=== PATIENT | female | born 2000 | race Caucasian/White ===

== ENCOUNTER 2024-07-15 07:44 | Inpatient (IN) ==
[2024-07-15] MEDS ORDERED: LIDOCAINE 1% LOCAL 20 ML VIAL INFIL PRN (07:53)
[2024-07-15] MEDS ORDERED: OXYTOCIN 30 UNITS/NSS 30 UNITS/500 ML BAG IV PRN ×2 (07:53→17:12)
--- NOTE | 2024-07-15 08:12 | History & Physical Report ---
Date of Service July 15, 2024 Assessment & Plan (1) Encounter for induction of labor: (2) 40 weeks gestation of : Plan admit for iol. pitocin and arom as indicated . epidural on demand. fetus category one. anticipate . Admission and Anticipated Discharge Date Admission Date: July 15, 2024 History of Present Illness Chief Complaint: iol, postdates Primary Care Provider: NO PCP patient is a 23yowf with iup at 40 4/7 who presents for iol for postdates. Notes no contractions. no lof/vb. Good fm. Patient smokes MJ daily for treatment of anxiety and depression, has a card. and Delivery Plans Hx Pre-eclampsia baseline labs and 24 hour urine. baby asa Medical Marijuana Card--anxiety New FOB IOL post-dates 07/15 OB Labs: Blood Type A Positive 01/12/24 Antibody Screen NEGATIVE 01/12/24 Hgb 12.1 g/dl (12.0-16.0) 06/14/24 Hct 35.3 % (37.0-47.0) L 06/14/24 MCV 85.5 fL (80.0-100.0) 06/14/24 Plt Count 204 K/uL (130-400) 06/14/24 Rubella IgG Antibody Immune (Immune) 01/12/24 Treponema pallidum Ab Negative (Negative) 01/12/24 Hep Bs Antigen Negative (Negative) 01/12/24 Hepatitis C Antibody Negative (Negative) 01/12/24 HIV 1&2 Ab/P24 Ag 4thGn Negative (Negative) 01/12/24 Glucose 1 Hr 50 gm 149 mg/dl (70-130) H 02/02/24 OB Optional Labs: Chlamydia trachomatis RNA Not Detected (NotDetected) 06/14/24 Neisseria gonorrhoeae RNA Not Detected (NotDetected) 06/14/24 gbs neg--akh Allergies Allergy/AdvReac Type Severity Reaction Status Date / Time amoxicillin Allergy Severe Anaphylaxis Verified 07/12/24 09:47 Penicillins Allergy Severe Anaphylaxis Verified 07/12/24 09:47 Home Medications Medication Instructions Recorded Confirmed Type prenat.vits,oscar,sdk-nsqi-blbca tab PO 01/05/24 07/12/24 History Patient History Medical History (Updated 07/15/24 @ 08:24 by Glendy Hunt MD, FACOG) Anxiety and depression Fibromyalgia Surgical History (Updated 07/15/24 @ 08:17 by Glendy Hunt MD, FACOG) No pertinent past surgical history Social History Smoking Status: Never smoker Do You Dip or Chew Tobacco: No; Hx Alcohol Use: No Hx Substance Use: Yes Substance Use Type Other:: medical marijuana card; last used @ 0300 06/14 Preferred Language: Luxembourgish marital status: Single marital status details: Ken (23) [phone] Current Living Situation Comment: lives with FOB, and daughter, 1dog, 2 cats, FOB to change litter current occupational status: unemployed Feels Safe at Home: Yes OB History Past Pregnancies Del. Date GA wks Lbr Lgth wt Sex Type del Anes Place Del Prov ? Comment Unknown 11 Aborted-Elective 201711/21/21 37 4lb 12oz F Epid ural Other [place], [facility] Pre-eclampsia [employer]PER[employer]/PAVER History noncontributory Physical Exam Constitutional: WD/WN, vitals as above Gastrointestinal (Abdomen): soft, gravid, nt Psychiatric: A+Ox3, euthymic affect Genitourinary: cx--3/75/-2/mid/soft toco--,oc efm--130s with mod varaibiltiy, accels present, no decels Results & Data Vital Signs (Past 12 Hours) Vital Signs Pulse BP 07/15/24 07:59 83 135/71 Coding Level of Care Code None Diagnoses Encounter for induction of labor Z34.90 40 weeks gestation of Z3A.40
[2024-07-15] MEDS: LACTATED RINGER'S 1,000 ML IV PRN (08:22)
[2024-07-15] MEDS: OXYTOCIN 30 UNITS/NSS 30 UNITS/500 ML BAG IV PRN (08:43)
[2024-07-15 08:46] LABS: Hematocrit (blood only) 36.7 % (37.0-47.0); Hemoglobin 12.2 g/dl (12.0-16.0); Mean Corpuscular Hemoglobin 28.4 pg (25.0-34.0); Mean Corpuscular Hgb Conc 33.2 g/dL (32.0-36.0); Mean Corpuscular Volume 85.3 fL (80.0-100.0); Mean Platelet Volume 12.5 fL (9.4-12.4); Platelet Count 192 K/uL (130-400); RDW Standard Deviation 46.5 fL (36.4-46.3)
[2024-07-15 09:26] LABS: Amphetamines+Metham, Urine Neg (Neg); Barbiturates, Urine Neg (Neg); Benzodiazepine, Urine Neg (Neg); Cocaine, Urine Neg (Neg); Fentanyl, Urine Neg (Neg); MDMA (Ecstacy), Urine Neg (Neg); Marijuana, Urine Pos (Neg); Methadone, Urine Neg (Neg); Opiate, Urine Neg (Neg); Phencyclidine, Urine Neg (Neg)
[2024-07-15 12:00] LABS: Albumin Globulin Ratio 1.3 (0.9-2); Bilirubin,Total 0.4 mg/dl (0.2-1.0); Calcium 8.9 mg/dl (8.6-10.3); Creatinine Clr Calc Pharmacy 144.5 ml/min; Globulin 3.2 gm/dl (2.5-4.0); Total Protein 7.2 gm/dl (6.0-8.3)
[2024-07-15] MEDS ORDERED: diphenhydrAMINE 50 MG/ML VIAL IV PRN (12:20)
[2024-07-15] MEDS ORDERED: fentANYL 2 MCG/ML BUPIVacaine 0.125%-NSS 100ML BAG EPI PRN (12:20)
[2024-07-15] MEDS ORDERED: ROPIVACAINE 0.5% PF 5 MG/ML 20 ML VIAL EPI PRN (12:20)
[2024-07-15] MEDS ORDERED: LIDOCAINE 2% MPF LOCAL 5 ML VIAL EPI PRN (12:20)
[2024-07-15] MEDS ORDERED: fentaNYL citrate PF 100 MCG/2 ML VIAL EPI PRN (12:20)
[2024-07-15] MEDS ORDERED: NALOXONE HCL 0.4 MG/1 ML VIAL/CARP IV PRN (12:20)
[2024-07-15] MEDS ORDERED: SODIUM CHLORIDE 0.9% PF INJ 10 ML VIAL EPI PRN (12:20)
[2024-07-15] MEDS ORDERED: ePHEDrine sulfate 50 MG/ML AMP IV PRN (12:20)
[2024-07-15] MEDS ORDERED: NALOXONE HCL 1 MG in SODIUM CHLORIDE 0.9% 1,000 ML IV PRN (12:20)
[2024-07-15] MEDS ORDERED: BUPIVACAINE 0.25% PF 30 ML VIAL EPI PRN (12:20)
[2024-07-15] MEDS ORDERED: NALBUPHINE HCL INJ 10 MG/ML AMP IV PRN (12:20)
--- NOTE | 2024-07-15 12:20 | Anesthesiology Consultation ---
Date of Service July 15, 2024 Assessment & Plan Chart Review Chart Review: Acceptable Risk for Labor Epidural History Height/Weight Height: 5 ft 1 in Weight: 83.915 kg Allergies Allergy/AdvReac Type Severity Reaction Status Date / Time amoxicillin Allergy Severe Anaphylaxis Verified 07/12/24 09:47 Penicillins Allergy Severe Anaphylaxis Verified 07/12/24 09:47 Medications Home Medications Medication Instructions Recorded Confirmed Last Taken prenat.vits,oscar,wud-tdve-qiacb 1 tab PO 1XD 01/05/24 07/15/24 Unknown Active Medications Generic Name Dose Route Start Last Admin Trade Name Freq PRN Reason Stop Dose Admin Lactated Ringer's 1,000 mls @ 125 mls/hr 07/15/24 07:53 07/15/24 12:15 Lr IV 07/16/24 07:52 999 mls/hr .Q8H PRN Infusion L&D Protocol Protocol Oxytocin 30 units in 500 mls @ 11 mls/hr 07/15/24 07:53 07/15/24 11:25 Pitocin 30 Units/Nss IV 07/17/24 07:52 0.66 units/hr .Q24H PRN 11 mls/hr Labor Induction/Augmentation Titration Protocol 0.66 UNITS/HR Past Medical History Medical History Anxiety and depression Fibromyalgia Past Surgical History Surgical History No pertinent past surgical history Social History Smoking Status: Former smoker Do You Dip or Chew Tobacco: No Hx Alcohol Use: No Hx Substance Use: Yes substance use type: marijuana and prescription drug Substance Use Type Other:: medical marijuana card; last used @ 0300 06/14 Last Used Substance: Hours (ago) Last Used Substance Other:: medical marijuana card in chart Physical Exam Vital Signs Last Vital Signs Temp 36.9 C 07/15/24 11:00 Pulse 101 H 07/15/24 11:52 Resp 18 07/15/24 11:30 BP 151/84 H 07/15/24 11:52 O2 Del Method Room Air 07/15/24 08:02 Testing Laboratory Results 07/15/24 08:13 07/15/24 11:23
[2024-07-15] MEDS: fentANYL 2 MCG/ML BUPIVacaine 0.125%-NSS 100ML BAG ONE (12:56)
[2024-07-15] MEDS: LIDOCAINE 2%/EPINEPHRINE 1:200,000 20 ML PF ONE (12:57)
[2024-07-15] MEDS: fentaNYL citrate PF 100 MCG/2 ML VIAL ONE (12:57)
[2024-07-15] MEDS: BUPIVACAINE 0.25% PF 30 ML VIAL ONE (12:57)
[2024-07-15] MEDS: BUPIVACAINE 0.25% PF 30 ML VIAL EPI STA (12:57)
[2024-07-15] MEDS: fentaNYL citrate PF 100 MCG/2 ML VIAL EPI STA (12:58)
[2024-07-15] MEDS: LIDOCAINE 2%/EPINEPHRINE 1:200,000 20 ML PF EPI STA (12:58)
[2024-07-15] MEDS: SODIUM CHLORIDE 0.9% PF INJ 10 ML VIAL EPI STA (12:58)
--- NOTE | 2024-07-15 13:40 | Labor Progress Brief Note ---
Date of Service July 15, 2024 Subjective Comfortable with epidural, FHT Cat 1 Ajo Q 2 SVE 5/90/-1 AROM clear fluid. Continue labor. Assessment & Plan Admission and Anticipated Discharge Date Admission Date: July 15, 2024 Results & Data Vital Signs (Past 12 Hours) Vital Signs Temp Pulse Resp BP Pulse Ox O2 Del Method 07/15/24 13:38 91 H 130/70 07/15/24 13:37 100 07/15/24 13:37 93 H 07/15/24 13:37 89 139/112 H 07/15/24 13:32 82 99 07/15/24 13:27 90 99 07/15/24 13:22 73 99 07/15/24 13:18 82 135/77 07/15/24 13:17 78 99 07/15/24 13:14 75 137/73 07/15/24 13:12 79 98 07/15/24 13:07 98 07/15/24 13:07 79 07/15/24 13:07 86 143/78 H 07/15/24 13:04 87 134/67 07/15/24 13:02 80 135/65 98 07/15/24 13:01 78 141/67 H 07/15/24 13:00 18 07/15/24 13:00 18 07/15/24 12:58 72 129/62 07/15/24 12:57 95 H 98 07/15/24 12:56 76 133/70 07/15/24 12:54 93 H 135/79 07/15/24 12:52 84 130/70 99 07/15/24 12:49 80 131/66 07/15/24 12:47 88 99 07/15/24 12:46 92 H 131/75 07/15/24 12:44 93 H 128/69 07/15/24 12:42 75 135/78 98 07/15/24 12:40 98 H 140/79 07/15/24 12:38 84 150/80 H 07/15/24 12:37 82 100 07/15/24 12:36 92 H 154/93 H 07/15/24 12:32 89 98 07/15/24 12:30 18 07/15/24 12:30 18 07/15/24 12:27 74 98 07/15/24 12:22 80 99 07/15/24 11:52 101 H 151/84 H 07/15/24 11:30 18 07/15/24 11:30 18 07/15/24 11:00 20 07/15/24 11:00 36.9 C 20 07/15/24 10:50 97 H 147/90 H 07/15/24 10:48 84 153/94 H 07/15/24 10:47 64 146/88 H 07/15/24 10:30 18 07/15/24 10:30 18 07/15/24 10:00 16 07/15/24 10:00 16 07/15/24 09:48 85 128/61 07/15/24 09:30 18 07/15/24 09:30 18 07/15/24 08:47 92 H 133/86 07/15/24 08:02 36.7 C 83 18 135/71 Room Air 07/15/24 07:59 83 135/71 Coding Level of Care Code None
[2024-07-15] MEDS ORDERED: bisacodyL 10 MG SUPP PR PRN (17:12)
[2024-07-15] MEDS ORDERED: HYDROCORTISONE ACETATE 25 MG SUPP PR PRN (17:12)
--- NOTE | 2024-07-15 17:23 | Delivery Summary ---
Vaginal Delivery Summary Date of Service July 15, 2024 Vaginal Delivery Summary and 1st Degree LAC Vaginal Delivery Summary: Pre-delivery diagnoses: 23yo @ 40 /, IOL, h/o preeclampsia, marijuana user Post-delivery diagnoses: same Procedure: spontaneous vaginal delivery, mild shoulder dystocia Surgeon: Eloise Wise DO Complications: none Findings: Viable male . Apgars: 8/10 . Weight pending, please see nursery records Estimated QBL: 10cc Description of delivery: The patient progressed to complete with epidural anesthesia. She then began to push. She spontaneously vaginally delivered a viable from the cephalic presentation. The head delivered in NERI position. The anterior shoulder did not immediately deliver, therefore patient was repositioned using McRobert's maneuver, and attempted again - not successful. Posterior shoulder attempted, then shoulders rotated for delivery of posterior shoulder, followed by anterior shoulder. 1 min 30 seconds between head and body delivery. The baby was placed on mother's abdomen, baby was vigorous and a spontaneous cry was heard. The cord was doubly clamped and cut. A segment was retained for cord gases. Cord blood was obtained. The placenta was delivered spontaneously intact with a 3-vessel cord. The uterus and vagina were swept of clots and debris. IV pitocin was given. The uterus became firm. The cervix, vagina, and perineum were inspected and a small 1st degree perineal laceration was noted, hemostatic, patient did not desire repair. Excellent hemostasis was observed. After delivery, I debriefed pt and FOB about the mild shoulder dystocia, baby vigorous in the room, moving all extremities well. The mother and baby are recovering in stable and good condition in the room. Sponge, sharp and instrument counts were correct x 2. Eloise Wise DO [facility] Vaginal Delivery Charge Vaginal Delivery Codes: 79536 global code for the antepartum, delivery, and post- Delivery Type Details: and 1st Degree LAC
--- NOTE | 2024-07-15 17:38 | Anesthesia Procedure Note ---
Date of Service July 15, 2024 Anesthesia Post Epidural Note Vital Signs Vital Signs: Temp Pulse Resp BP Pulse Ox O2 Del Method 36.8 C 82 16 124/59 L 94 Room Air 07/15/24 17:00 07/15/24 17:33 07/15/24 17:15 07/15/24 17:31 07/15/24 17:33 07/15/24 08:02 Notes Mental Status: alert / awake / arousable and participated in evaluation Nausea / Vomiting: adequately controlled Pain: adequately controlled Airway Patency, RR, SpO2: stable & adequate BP & HR: stable & adequate Hydration State: stable & adequate Neuraxial Anesthesia: was administered and sensory block is resolving Anesthetic Complications: no major complications apparent and Pt Satisfied with anesthetic care Epidural: Removed without complications and With tip intact
[2024-07-15] MEDS: SODIUM CHLORIDE 0.9% PF INJ 10 ML VIAL ONE (17:39)
[2024-07-15] MEDS: ePHEDrine sulfate 50 MG/ML AMP ONE (17:39)
[2024-07-15] MEDS: DIPHTHER/TETAN/PERTUS Vaccine (Tdap, Adol/Adult) 0.5mL IM ONE (17:40)
[2024-07-15 18:08] LABS: Cord Venous Blood pH 7.41 (7.20-7.44)
[2024-07-15 18:09] LABS: Base Excess Cord Venous Blood -3.7 mEq/L (-7.7-1.9); Cord Venous Blood HCO3 20 mmol/L (18.4-26.8); Cord Venous Blood PCO2 31 mmHg (30.4-57.2); Cord Venous Blood PO2 38 mmHg (14.1-43.3); O2 Saturation Cord Venous Bld 77.8 % (<68)
[2024-07-15 18:10] LABS: CO2 Cord Arterial Blood 44 mmHg (39.1-73.5); HCO3 Cord Arterial Blood 24 mmol/L (19.7-28.5); PO2 Cord Arterial Blood < 20 mmHg (4.1-31.7); pH Cord Arterial Blood 7.34 (7.1-7.38)
[2024-07-15 18:11] LABS: Base Excess Cord Arterial Bld -2.3 mEq/L (-9-1.8); Oxygen Sat Cord Arterial Blood < 60.0 % (<60)
[2024-07-15 18:20] VITALS: RESP 18
[2024-07-15] MEDS: BENZOCAINE 20% SPRY 85 APPLN/85 GM CAN EXT PRN (19:09)
[2024-07-15] MEDS: DOCUSATE SODIUM 100 MG CAP PO SCH (20:15)
[2024-07-16] MEDS: IBUPROFEN 600 MG TAB PO PRN (00:27)
[2024-07-16] MEDS: ACETAMINOPHEN 325 MG TAB PO PRN (03:09)
[2024-07-16 07:01] LABS: Hematocrit (blood only) 30.9 % (37.0-47.0); Hemoglobin 10.3 g/dl (12.0-16.0); Mean Corpuscular Hemoglobin 28.5 pg (25.0-34.0); Mean Corpuscular Hgb Conc 33.3 g/dL (32.0-36.0); Mean Corpuscular Volume 85.4 fL (80.0-100.0); Mean Platelet Volume 12.8 fL (9.4-12.4); Platelet Count 164 K/uL (130-400); RDW Standard Deviation 46.6 fL (36.4-46.3); Red Blood Count 3.62 M/uL (4.20-5.40); White Blood Count 11.98 K/ul (4.8-10.8)
--- NOTE | 2024-07-16 07:19 | Obstetrical Progress Note ---
Date of Service July 16, 2024 Assessment & Plan (1) Vaginal delivery: Plan: 1st PP Day following 23 years at 37 week POG. Both mom and baby doing well. Can discharge today as per protocol. Ready for DC. Admission and Anticipated Discharge Date Admission Date: July 15, 2024 Supervising Physician Co-Signing Physician Notes Resident Physician Supervision Note: I interviewed and examined the patient. Discussed with Dr. Valdez and agree with findings and plan as documented in the note. Any exceptions or clarifications are listed here: PPD#1 doing well, anticipate likely DC home today, reviewed PP instructions and followup 6w in office. Documented By: Eloise Wise, Subjective 1st PP Day following 23 years at 37 week POG. No active complains Both mom and baby doing well. Pain: Mild, intermittent Lochia: Moderate Diet: Regular Ob diet Gas: Not aware of passing, but no abdominal distension Peeing: Normal, no bladder distension Ambulation: Normally Review of Systems Review of Systems: No SOB, chest pain, leg pain No dizziness, headache, palpitation No Blurring of vision , fever Physical Exam Physical Exam: General: Alert and oriented. No acute distress. CVS: S1 S2+ No murmurs, regular rhythm. Respiratory: CTA bilaterally. No rhonchi, wheezes, or crackles. No increased work of breathing. Abdomen: Bowel sound +. Soft, nontender Uterus: Fundus firm and palpable few cm below the umbilicus. Lower extremities: No LE edema. No deep calf pain. Results & Data Vital Signs (Past 12 Hours) Vital Signs Temp Pulse Resp BP Pulse Ox O2 Del Method 07/16/24 03:15 36.5 C 76 18 128/78 96 Room Air 07/15/24 23:15 36.8 C 85 18 125/75 96 Room Air 07/15/24 20:05 37 C 84 18 136/76 95 Room Air
[2024-07-16] MEDS: PRENATAL VITAMIN 1 TAB PO SCH (07:27)
[2024-07-16 07:37] VITALS: O2SAT 97
[2024-07-16 13:51] VITALS: BP 132/80; PULSE 85; TEMP 97.9
[2024-07-16] MEDS ORDERED: bisacodyL 5 MG TABEC PO SCH (20:00)
[2024-07-17 13:57] LABS: Marijuana Quant, GCMS Urine 71 ng/mL (<5)
== END 2024-07-16 17:45 | disposition home or self-care (01) | DRG 806 ==
LOC: 4S1 07:44 → 4E2 19:45